=== PATIENT | male | born 1960 | race Caucasian/White ===

== ENCOUNTER 2018-08-22 12:36 | Emergency (ER) | payer MEDICAID, MEDICARE ==
[~2018-08-22] VITALS: Ht 175.3 cm; Wt 68.2 kg
[~2018-08-22 12:36] MED LIST: DIPH25CA85 PO; DSS100 PO; QUET50XR PO; RISP1 PO
[2018-08-22 15:23] VITALS: BP 137/72
== END 2018-08-22 15:25 | disposition home or self-care (01) ==
LOC: EMS 12:36
DX: F20.9 Schizophrenia, unspecified (principal); R03.0 Elevated blood-pressure reading, without diagnosis of hypertension; F12.90 Cannabis use, unspecified, uncomplicated; Z59.0 Homelessness; Z88.0 Allergy status to penicillin; Z79.899 Other long term (current) drug therapy

== ENCOUNTER 2018-12-01 14:12 | Inpatient (IN) | payer MEDICARE ==
[~2018-12-01] VITALS: Ht 175.3 cm; Wt 58.2 kg
[~2018-12-01 14:12] MED LIST changes: +QUET50TA15 PO; -QUET50XR PO
[2018-12-01] MEDS ORDERED: LORazepam 2 MG TABLET PO ONE (15:45)
[2018-12-01] MEDS ORDERED: HALOPERIDOL 5 MG TABLET PO ONE (15:45)
[2018-12-01] MEDS ORDERED: HALOPERIDOL 5 MG TABLET PO PRN (17:00)
[2018-12-01] MEDS ORDERED: LORazepam 2 MG TABLET PO PRN (17:00)
[2018-12-01] MEDS ORDERED: ZOLPIDEM TARTRATE 10 MG TABLET PO PRN (17:00)
[2018-12-01 17:52] LABS: BASOPHILS % (AUTO) 1.3 % (0.0-2.0); EOSINOPHILS % (AUTO) 3.1 % (1.0-6.0); HEMATOCRIT 39.3 % (41-53); HEMOGLOBIN 12.8 g/dL (13.5-17.5); LYMPHOCYTES # (AUTO) 1.8 K/uL (1.0-4.8); LYMPHOCYTES % (AUTO) 19.9 % (22.0-44.0); MEAN CORPUSCULAR HEMOGLOBIN 27.8 pg (26.0-34.0); MEAN CORPUSCULAR HGB CONC 32.5 G/dL (31.0-37.0); MEAN CORPUSCULAR VOLUME 86 fL (80-100); MONOCYTES # (AUTO) 0.7 K/uL (0.1-1.0); MONOCYTES % (AUTO) 7.9 % (2.0-9.0); NEUTROPHILS % (AUTO) 67.8 % (40.0-70.0); PLATELET COUNT (AUTO) 479 K/uL (150-450); RED BLOOD CELL COUNT(AUTO) 4.59 MIL/uL (4.50-5.90); RED CELL DISTRIBUTION WIDTH 16.4 % (11.5-14.5)
[2018-12-01 17:59] LABS: ANION GAP 6 mmol/L (8-16); CALCIUM, TOTAL 8.9 mg/dL (8.8-10.5); CARBON DIOXIDE 31 mmol/L (22-29); CHLORIDE 104 mmol/L (98-107); CREATININE 1.11 mg/dL (0.60-1.30); GLOMERULAR FILTR. RATE CALC > 60 mL/min (>60); GLUCOSE,RANDOM 140 mg/dL (70-110); POTASSIUM 3.8 mmol/L (3.5-5.1); SODIUM SERUM 141 mmol/L (136-145); UREA NITROGEN, BLOOD 43 mg/dL (7-18)
[2018-12-01 18:05] LABS: ALANINE AMINOTRANSFERASE 31 U/L (12-78); ALBUMIN 3.4 g/dL (3.4-5.0); ALKALINE PHOSPHATASE 84 U/L (46-116); ASPARTATE AMINOTRANSFERASE 35 U/L (15-37); BILIRUBIN,TOTAL 0.2 mg/dL (0.1-1.0); TOTAL PROTEIN, SERUM 7.6 g/dL (6.4-8.2)
[2018-12-01 18:38] LABS: APPEARANCE,URINE CLEAR (CLEAR); GLUCOSE, URINE (UA) NEGATIVE (NEGATIVE); KETONES,URINE NEGATIVE (NEGATIVE); LEUKOCYTE ESTERASE ,URINE NEGATIVE (NEGATIVE); NITRATE,URINE NEGATIVE (NEGATIVE); OCCULT BLOOD,URINE NEGATIVE (NEGATIVE); PROTEIN,URINE NEGATIVE (NEGATIVE); UROBILINOGEN,URINE 0.2 mg/dL (<=1.0)
[2018-12-01 18:39] LABS: BILIRUBIN,URINE PRELIM. POSITIVE (NEGATIVE)
[2018-12-01 18:44] LABS: AMPHET/METH SCREEN,URINE POSITIVE (NEGATIVE); BARBITURATE SCREEN, URINE NEGATIVE (NEGATIVE); BENZODIAZEPINES SCREEN,URINE NEGATIVE (NEGATIVE); CANNABINOID SCREEN,URINE POSITIVE (NEGATIVE); COCAINE SCREEN,URINE NEGATIVE (NEGATIVE); METHADONE SCREEN, URINE NEGATIVE (NEGATIVE); OPIATE SCREEN,URINE NEGATIVE (NEGATIVE)
[2018-12-01 18:54] LABS: PHENCYCLIDINE SCREEN,URINE NEGATIVE (NEGATIVE)
[2018-12-01 20:15] VITALS: BP 118/71
[2018-12-01] MEDS ORDERED: IBUPROFEN 600 MG TABLET PO PRN (21:15)
[2018-12-01] MEDS ORDERED: MAG HYDROX/AL HYDROX/SIMETH ES 30 ML SUSPENSION UDCUP PO PRN (21:15)
[2018-12-01] MEDS ORDERED: ONDANSETRON HCL 4 MG TABLET PO PRN (21:15)
[2018-12-01] MEDS ORDERED: BENZOCAINE/MENTHOL LOZENGE MM PRN (21:15)
[2018-12-01] MEDS ORDERED: LOPERAMIDE HCL 2 MG CAPSULE PO PRN (21:15)
[2018-12-01] MEDS ORDERED: ALBUTEROL SULFATE HFA 90 MCG/PUFF 8 GM INHALER IH PRN (21:15)
[2018-12-01] MEDS ORDERED: MAGNESIUM HYDROXIDE SUSPENSION 30 ML UDCUP PO PRN (21:15)
[2018-12-01] MEDS ORDERED: CloNIDine HCL 0.1 MG TABLET PO PRN (21:15)
[2018-12-01] MEDS ORDERED: ACETAMINOPHEN 325 MG TABLET PO PRN (21:15)
[2018-12-01] MEDS ORDERED: PETROLATUM,WHITE 28 GM JELLY TP PRN (21:15)
[2018-12-02 07:32] LABS: CHOL/HDL RATIO 2.5 (4.2-7.3)
[2018-12-02] MEDS: DOCUSATE SODIUM 100 MG CAPSULE PO SCH (08:15)
[2018-12-02] MEDS: OMEPRAZOLE 20 MG CAPSULE PO SCH (08:15)
[2018-12-02] MEDS: NICOTINE 21 MG/24 HOUR PATCH TD SCH (09:00)
[2018-12-02] MEDS: BACITRACIN 28.4 GM OINTMENT TP SCH ×2 (09:00→16:43)
[2018-12-02 09:30] VITALS: BP 108/69
[2018-12-02] MEDS: RisperiDONE 3 MG TABLET PO SCH (16:42)
[2018-12-02 21:37] VITALS: BP 111/75
[2018-12-03 08:26] VITALS: BP 129/65
[2018-12-03] MEDS: OMEPRAZOLE 20 MG CAPSULE PO SCH (08:28)
[2018-12-03] MEDS: RisperiDONE 3 MG TABLET PO SCH ×2 (08:28→19:21)
[2018-12-03] MEDS: NICOTINE 21 MG/24 HOUR PATCH TD SCH (08:29)
[2018-12-03] MEDS: DOCUSATE SODIUM 100 MG CAPSULE PO SCH (08:29)
[2018-12-03] MEDS: BACITRACIN 28.4 GM OINTMENT TP SCH ×2 (09:00→19:21)
[2018-12-03 16:30] VITALS: BP 108/68
[2018-12-04 08:00] VITALS: BP 116/77
[2018-12-04] MEDS: OMEPRAZOLE 20 MG CAPSULE PO SCH (08:39)
[2018-12-04] MEDS: DOCUSATE SODIUM 100 MG CAPSULE PO SCH (08:39)
[2018-12-04] MEDS: RisperiDONE 3 MG TABLET PO SCH ×2 (08:39→16:23)
[2018-12-04] MEDS: NICOTINE 21 MG/24 HOUR PATCH TD SCH (09:00)
[2018-12-04] MEDS: BACITRACIN 28.4 GM OINTMENT TP SCH ×2 (12:12→16:23)
[2018-12-04 17:00] VITALS: BP 105/77
[2018-12-05] MEDS: NICOTINE 21 MG/24 HOUR PATCH TD SCH (09:00)
[2018-12-05] MEDS: OMEPRAZOLE 20 MG CAPSULE PO SCH (09:06)
[2018-12-05] MEDS: BACITRACIN 28.4 GM OINTMENT TP SCH ×2 (09:06→16:26)
[2018-12-05] MEDS: DOCUSATE SODIUM 100 MG CAPSULE PO SCH (09:06)
[2018-12-05] MEDS: RisperiDONE 3 MG TABLET PO SCH ×2 (09:07→16:26)
[2018-12-05 10:09] VITALS: BP 111/75
[2018-12-05 17:10] VITALS: BP 122/68
[2018-12-06 08:00] VITALS: BP 115/65
[2018-12-06] MEDS: RisperiDONE 3 MG TABLET PO SCH ×2 (08:51→17:08)
[2018-12-06] MEDS: OMEPRAZOLE 20 MG CAPSULE PO SCH (08:52)
[2018-12-06] MEDS: DOCUSATE SODIUM 100 MG CAPSULE PO SCH (08:52)
[2018-12-06] MEDS: BACITRACIN 28.4 GM OINTMENT TP SCH ×2 (08:52→17:07)
[2018-12-06] MEDS: NICOTINE 21 MG/24 HOUR PATCH TD SCH (08:53)
[2018-12-06 17:21] VITALS: BP 117/61
[2018-12-07 02:33] VITALS: BP 125/80
[2018-12-07] MEDS ORDERED: MULTIVITAMINS WITH IRON TABLET PO SCH (08:00)
[2018-12-07] MEDS: RisperiDONE 3 MG TABLET PO SCH (08:46)
[2018-12-07] MEDS: DOCUSATE SODIUM 100 MG CAPSULE PO SCH (08:46)
[2018-12-07] MEDS: OMEPRAZOLE 20 MG CAPSULE PO SCH (08:46)
[2018-12-07] MEDS: BACITRACIN 28.4 GM OINTMENT TP SCH (08:48)
[2018-12-07] MEDS: NICOTINE 21 MG/24 HOUR PATCH TD SCH (08:51)
[2018-12-07 09:12] VITALS: BP 125/87
[2018-12-07] MEDS ORDERED: RISP3 PO (15:41)
[2018-12-07] MEDS ORDERED: BACI1POW2 MC (16:03)
[2018-12-07] MEDS ORDERED: BACI30OI10 TP (16:06)
[2018-12-07] MEDS ORDERED: BACI120O TP (16:08)
== END 2018-12-07 17:00 | disposition home or self-care (01) | DRG 885 ==
LOC: EMS 14:13 → 3EX 19:30
PROVIDERS: ADMIT Psychiatry & Neurology Psychiatry; ATTEND Psychiatry & Neurology Psychiatry
DX: F20.0 Paranoid schizophrenia (principal); F15.20 Other stimulant dependence, uncomplicated; F12.10 Cannabis abuse, uncomplicated; I10 Essential (primary) hypertension; J44.9 Chronic obstructive pulmonary disease, unspecified; K21.9 Gastro-esophageal reflux disease without esophagitis; K59.00 Constipation, unspecified; Z59.0 Homelessness; Z87.891 Personal history of nicotine dependence; Z91.19 Patient's noncompliance with other medical treatment and regimen; Z88.0 Allergy status to penicillin; Z79.899 Other long term (current) drug therapy
CPT/HCPCS: 83036; G0378; G0480